=== PATIENT | male | born 1950 | race Asian ===

== ENCOUNTER 2020-03-13 21:12 | Emergency (ER) | payer MEDICARE, OTHER ==
[~2020-03-13] VITALS: Ht 167.6 cm; Wt 109.1 kg
[2020-03-13 23:19] VITALS: BP 114/60; PULSE 76
== END 2020-03-13 23:19 | disposition home or self-care (01) ==
LOC: COL.ER 21:12
DX: T38.3X1A Poisoning by insulin and oral hypoglycemic [antidiabetic] drugs, accidental (unintentional), initial encounter (principal); E11.9 Type 2 diabetes mellitus without complications; I25.10 Atherosclerotic heart disease of native coronary artery without angina pectoris